=== PATIENT | female | born 1975 | race Two or more races ===

== ENCOUNTER 2019-02-23 13:42 | Inpatient (IN) | payer OTHER ==
[~2019-02-23] VITALS: Ht 162.6 cm; Wt 59.0 kg
[2019-02-26] MEDS ORDERED: ZESTRIL40 M1 PO (08:35)
[2019-02-26] MEDS ORDERED: LISINOP PO (08:35)
[2019-02-27] MEDS ORDERED: DAFLONEX-XL 11300 MG (06:54)
== END 2019-03-02 15:32 | DRG 743 ==
LOC: O/R 02-27 05:30 → OB/GYN 02-27 05:30 → SURG 02-27 07:30 → OB/GYN 02-27 10:17 → SURG 02-27 10:30 → OB/GYN 03-02 15:32
PROVIDERS: ADMIT Specialist
PROC: 0UT97ZZ Resection of Uterus, Via Natural or Artificial Opening (ICD-10-PCS; principal; 2019-02-27 10:30)
DX: D25.1 Intramural leiomyoma of uterus (principal); N72 Inflammatory disease of cervix uteri